=== PATIENT | female | born 1980 | race Two or more races ===

== ENCOUNTER 2021-10-25 20:40 | Emergency (ER) | payer MEDICAID, OTHER ==
[~2021-10-25] VITALS: Ht 157.5 cm; Wt 68.0 kg
[2021-10-25] MEDS ORDERED: IBUPROFEN 400 MG TABLET PO ONE (21:30)
[2021-10-25 22:30] VITALS: BP 130/78
[2021-10-25] MEDS ORDERED: IBUPROFEN 400 MG TABLET ONE (22:36)
--- NOTE | 2021-10-25 22:41 | NUR ---
Patient discharged to home in stable condition. Written and verbal after care instructions given. Patient verbalizes understanding of instruction.
== END 2021-10-25 22:44 | disposition home or self-care (01) ==
LOC: ER 20:45
DX: S69.81XA Other specified injuries of right wrist, hand and finger(s), initial encounter (principal); W22.8XXA Striking against or struck by other objects, initial encounter; Y93.89 Activity, other specified; Y92.89 Other specified places as the place of occurrence of the external cause; Y99.8 Other external cause status
CPT/HCPCS: 73130-TC